=== PATIENT | male | born 1985 | race Caucasian/White ===

== ENCOUNTER 2025-04-01 06:09 | Day surgery (SDC) | payer OTHER, SELFPAY ==
[2025-03-31 13:25] VITALS: BMI 31.6
[2025-04-01 07:50] VITALS: BP 133/70; PULSE 54; RESP 16; TEMP 36.1; O2SAT 98; BMI 30.4
[2025-04-01] MEDS: SIMETHICONE ORAL SUSPENSION 20 MG/0.3 ML 30 ML BOTTLE 1.8 ML PO (07:53)
--- NOTE | 2025-04-01 07:59 | P.PNAN_ITS ---
Anes - Initial Pre Proc Eval Procedure: Operation Date: 04/01/25 09:00 Proposed Procedures p Esophagogastroduodenoscopy EGD - Aj Ponce MD Date/Time: 04/01/25 07:59 Surgeon: Aj Ponce MD Pre Op Diagnosis: Esophageal obstruction, GERD Patient Data Age: 40 Gender: M Height: 1.73 m Weight: 90.7 kg Last Vital Signs Temp 97 F L 04/01/25 07:50 Pulse 54 L 04/01/25 07:50 Resp 16 04/01/25 07:50 BP 133/70 04/01/25 07:50 Pulse Ox 98 04/01/25 07:50 O2 Del Method Room Air 04/01/25 07:50 Allergies Allergy/AdvReac Type Severity Reaction Status Date / Time meperidine (From Demerol) Allergy Severe Anaphylaxis Verified 04/01/25 07:48 midazolam Allergy Severe Anaphylaxis Verified 04/01/25 07:48 Home Medications ?Medication ?Instructions ?Recorded ?Confirmed ?Type albuterol sulfate 90 mcg/actuation 2 inh inhalation QI D PRN shortness 03/31/25 03/31/25 History aerosol inhaler (Ventolin HFA) of breath or wheezing diclofenac sodium 1 % topical gel 2 g topical BID PRN pain 03/31/25 03/31/25 History (Arthritis Pain (diclofenac)) naproxen 250 mg tablet 250 mg PO BID PRN pain 03/3103/31/25 History omeprazole 20 mg capsule,delayed 20 mg PO DAILY 04/01/25 History release Patient hx anesthesia problems: none Family hx anesthesia problems: none Results Review: All pre-operative results and documents have been reviewed as part of the pre- operative evaluation. [facility] Social History Social History Living arrangements: incarcerated Anes - Eval Final PreProcedure Day of Procedure 04/01/25 07:59 Patient weight: obese Heart: regular rate and rhythm Lungs: clear to auscultation Airway: Mallampati scale class II Neurological: alert and oriented Last oral intake: >/= 8 hours ASA classification: II Emergent: no Anesthetic plan: proceed Anesthesia type and monitoring: general GIVS and standard monitoring Results Review: All pre-operative results and documents have been reviewed as part of the pre- operative evaluation. Informed Consent: The patient's anesthetic plan and its attendant risks and benefits were discussed with the patient/family/POA. Questions were solicited and answers provided to the satisfaction of the patient/family/POA.
[2025-04-01] MEDS: LACTATED RINGERS 1,000 ML 150 ML IV CONT (08:01)
--- NOTE | 2025-04-01 08:06 | WPDANESEPPF ---
Anes - Initial Pre Proc Eval Procedure: Operation Date: 04/01/25 09:00 Proposed Procedures p Esophagogastroduodenoscopy EGD - Aj Ponce MD Date/Time: 04/01/25 08:06 Surgeon: Aj Ponce MD Pre Op Diagnosis: Esophageal obstruction, GERD Patient Data Age: 40 Gender: M Height: 1.73 m Weight: 90.7 kg Last Vital Signs Temp 97 F L 04/01/25 07:50 Pulse 54 L 04/01/25 07:50 Resp 16 04/01/25 07:50 BP 133/70 04/01/25 07:50 Pulse Ox 98 04/01/25 07:50 O2 Del Method Room Air 04/01/25 07:50 Allergies Allergy/AdvReac Type Severity Reaction Status Date / Time meperidine (From Demerol) Allergy Severe Anaphylaxis Verified 04/01/25 07:48 midazolam Allergy Severe Anaphylaxis Verified 04/01/25 07:48 Home Medications ?Medication ?Instructions ?Recorded ?Confirmed ?Type albuterol sulfate 90 mcg/actuation 2 inh inhalation QID PRN shortness 03/31/25 03/31/25 History aerosol inhaler (Ventolin HFA) of breath or wheezing diclofenac sodium 1 % topical gel 2 g topical BID PRN pain 03/31/25 03/31/25 History (Arthritis Pain (diclofenac)) naproxen 250 mg tablet 250 mg PO BID PRN pain 03/31/25 03/31/25 History omeprazole 20 mg capsule,delayed 20 mg PO DAILY 03/31/25 04/01/25 History release Patient hx anesthesia problems: none Family hx anesthesia problems: none Results Review: All pre-operative results and documents have been reviewed as part of the pre-operative evaluation. [facility] Social History Social History Living arrangements: incarcerated Anes - Eval Final PreProcedure Day of Procedure 04/01/25 08:06 Patient weight: normal Heart: regular rate and rhythm Lungs: clear to auscultation Neurological: alert and oriented Last oral intake: >/= 8 hours Emergent: no Anesthetic plan: proceed Results Review: All pre-operative results and documents have been reviewed as part of the pre-operative evaluation. Informed Consent: The patient's anesthetic plan and its attendant risks and benefits were discussed with the patient/family/POA. Questions were solicited and answers provided to the satisfaction of the patient/family/POA.
--- NOTE | 2025-04-01 09:02 | PM.IMHP ---
H&P: HPI History of Present Illness Date/Time: 04/01/25 09:02 Chief Complaint: GERD Narrative: The patient suffers from GERD practically all his life, currently taking omeprazole which helps with heartburn sensation but not with regurgitation which he has practically every night, despite eating dinner very early. He is now referred for EGD. Review of Systems Review of Systems: All systems reviewed & are unremarkable except as noted in HPI and below [facility] Social History Social History Living arrangements: incarcerated Meds Home Medications and Allergies Home Medications ?Medication ?Instructions ?Recorded ?Confirmed ?Type albuterol sulfate 90 mcg/actuation 2 inh inhalation QID PRN shortness 03/31/25 03/31/25 History aerosol inhaler (Ventolin HFA) of breath or wheezing diclofenac sodium 1 % topical gel 2 g topical BID PRN pain 03/31/25 03/31/25 History (Arthritis Pain (diclofenac)) naproxen 250 mg tablet 250 mg PO BID PRN pain 03/31/25 03/31/25 History omeprazole 20 mg capsule,delayed 20 mg PO DAILY 03/31/25 04/01/25 History release Allergies Allergy/AdvReac Type Severity Reaction Status Date / Time meperidine (From Demerol) Allergy Severe Anaphylaxis Verified 04/01/25 07:48 midazolam Allergy Severe Anaphylaxis Verified 04/01/25 07:48 Vital Signs Vital Signs - 24 hr 04/01/25 07:50 Temperature 97 F L Pulse Rate 54 L Respiratory Rate 16 Blood Pressure 133/70 Pulse Oximetry 98 Oxygen Delivery Room Air Exam Const: General: cooperative and healthy appearing Resp: Effort & Inspection: normal respiratory effort and able to speak in complete sentences Auscultation: clear to auscultation bilaterally Cardio: Rate: regular rate Rhythm: regular rhythm GI: Inspection: normal to inspection GI Palp: No No hepatosplenomegaly present Auscultation: normal bowel sounds Rectal Exam: deferred Skin: General skin exam: normal color Psych: Appearance: grossly normal Mental Status: mental status grossly normal Assessment and Plan Assessment and plan (1) GERD (gastroesophageal reflux disease): Code(s): K21.9 - Gastro-esophageal reflux disease without esophagitis Status: Acute Assessment and Plan: The patient is deemed a good candidate for the procedure. Consent signed. Will proceed.
--- NOTE | 2025-04-01 09:16 | S_PTH ---
PATIENT: Robbi Reeves LOC: [facility] U#:[id number] AGE/SX: 40/M ROOM: RE04/01/[address]: Aj Ponce MD : [id number] BED: DIS: 04/01/2025 SPEC #: [id number] RECD: 04/01/25 10:01 STATUS: KWABENA REMaribel #: [id number] ADRIANO: 04/01/25 09:[address]: Aj Ponce DEPT: [facility] Surgical RECD BY: Yamini Devine ENTERED: 04/01/25 10:02 SP TYPE: Surgical OTHR DR: UNKNOWN,DOCTOR Tissues: A - Gastric Biopsy B - Gastric Biopsy Procedures: Hematoxylin and Eosin Stain Gross and Microscopic Level 4
[2025-04-01 09:20] VITALS: BP 101/53; PULSE 62; RESP 18; O2SAT 98
[2025-04-01 09:30] VITALS: BP 100/67; PULSE 57; RESP 12; O2SAT 98
[2025-04-01 09:40] VITALS: BP 117/70; PULSE 55; RESP 16; O2SAT 98
== END 2025-04-01 10:00 | disposition home or self-care (01) ==
PROVIDERS: Visit Provider Internal Medicine Gastroenterology
PROC: 0DJ08ZZ Inspection of Upper Intestinal Tract, Via Natural or Artificial Opening Endoscopic (ICD-10-PCS; CPT 43239; principal; 2025-04-01 09:00)
DX: K21.9 Gastro-esophageal reflux disease without esophagitis (principal); E66.9 Obesity, unspecified; Z68.30 Body mass index [BMI] 30.0-30.9, adult; Z79.51 Long term (current) use of inhaled steroids; Z79.1 Long term (current) use of non-steroidal anti-inflammatories (NSAID)
CPT/HCPCS: 43239; 88305; J2003; J2704; J7120